=== PATIENT | male | born 1985 | race African-American/Black ===

== ENCOUNTER 2019-07-26 16:23 | Emergency (ER) | payer SELFPAY ==
[~2019-07-26] VITALS: Ht 187.9 cm; Wt 88.5 kg
[~2019-07-26 16:23] MED LIST: ATIVAN0.5 MG PO; BENTYL10 MG PO; CARAFATE1 G1 PO; NORCO 325 MG-51 TAB PO; NORCO 5-325 TA1 EACH PO; OMEPRAZOLE20 MG PO; PREDNISONE10 MG PO; PRILOSEC20 M1 PO; PROTONIX40 MG PO; SEPTRA DS 800 M1 TAB PO; ULTRAM50 MG PO; ZOFRAN4 MG PO
[2019-07-26] MEDS ORDERED: DOXYCYCLINE100 M3 PO (17:51)
== END 2019-07-26 18:06 | disposition home or self-care (01) ==
LOC: ED 16:23
DX: L02.12 Furuncle of neck (principal); K21.9 Gastro-esophageal reflux disease without esophagitis

== ENCOUNTER → 2022-03-08 | Outpatient (CLI) | payer BC ==
[~2022-03-08] MED LIST changes: +DOXYCYCLINE100 M3 PO
[2022-03-08 12:41] LABS: BUN 10 mg/dl (7-24); CHLORIDE 106 mmol/L (98-107); CREATININE 1.36 mg/dL (0.70-1.30); POTASSIUM 4.2 mmol/L (3.5-5.1); SODIUM 138 mmol/L (136-145)
== END | disposition home or self-care (01) ==
LOC: LAB 12:01
PROVIDERS: Internal Medicine Nephrology; ATTEND Family Medicine
DX: U07.1 COVID-19 (principal)